=== PATIENT | female | born 1980 | race Caucasian/White ===

== ENCOUNTER → 2016-08-15 | Outpatient (REF) | payer SELFPAY | LOC: M LAB REF 16:51 | PROVIDERS: ATTEND Physician Assistant Medical | DX: S31.819A Unspecified open wound of right buttock, initial encounter (principal); X58.XXXA Exposure to other specified factors, initial encounter; Y92.9 Unspecified place or not applicable; Y93.9 Activity, unspecified; Y99.8 Other external cause status ==

== ENCOUNTER → 2017-08-29 | Outpatient (REF) | payer SELFPAY ==
[2017-08-29 11:12] LABS: HEMATOCRIT 42.1 % (36.0-47.0); HEMOGLOBIN 13.8 g/dl (12.0-15.5); MEAN CORPUSCULAR HEMOGLOBIN 30.2 pg (27.0-33.0); MEAN CORPUSCULAR HGB CONC 32.8 g/dl (32.0-36.5); MEAN CORPUSCULAR VOLUME 92.1 fl (80.0-96.0); PLATELET COUNT, AUTOMATED 268 10^3/uL (150-450); RED BLOOD COUNT 4.57 10^6/uL (4.00-5.40); RED CELL DISTRIBUTION WIDTH 14.1 % (11.5-14.5); WHITE BLOOD COUNT 5.6 10^3/uL (4.0-10.0)
[2017-08-29 11:20] LABS: TOTAL 25(OH) VITAMIN D 64.7 NG/ML (30.0-100.0)
[2017-08-29 11:33] LABS: ALBUMIN/GLOBULIN RATIO 1.21 (1.00-1.93); ALKALINE PHOSPHATASE 61 U/L (45-117); ALT/SGPT 21 U/L (12-78); ANION GAP 6 MEQ/L (8-16); AST/SGOT 15 U/L (7-37); BILIRUBIN,TOTAL 0.4 MG/DL (0.2-1.0); BLOOD UREA NITROGEN 9 MG/DL (7-18); CALCIUM LEVEL 8.7 MG/DL (8.5-10.1); CARBON DIOXIDE LEVEL 27 MEQ/L (21-32); CHLORIDE LEVEL 107 MEQ/L (98-107); CHOLESTEROL LEVEL 151 MG/DL (<200); CHOLESTEROL RISK RATIO 3.511 (<5); CREATININE FOR GFR 0.76 MG/DL (0.55-1.30); GLOMERULAR FILTRATION RATE > 60.0 (>60); GLUCOSE, FASTING 74 MG/DL (70-100); HDL CHOLESTEROL 43 MG/DL (>40); LDL CHOLESTEROL 93.8 MG/DL (<100); NON-HDL-C 108 MG/DL; POTASSIUM SERUM 4.4 MEQ/L (3.5-5.1); SODIUM LEVEL 140 MEQ/L (136-145); TOTAL PROTEIN 7.3 GM/DL (6.4-8.2); TRIGLYCERIDES LEVEL 71 MG/DL (<150)
[2017-08-29 12:34] LABS: ESTIMATED AVERAGE GLUCOSE 97 MG/DL (60-110)
== END ==
LOC: M LABDRAW1 08:03
DX: D64.9 Anemia, unspecified (principal); R53.83 Other fatigue; E03.9 Hypothyroidism, unspecified
CPT/HCPCS: 84443

== ENCOUNTER 2017-11-21 08:33 | Emergency (ER) | payer BC, SELFPAY ==
[2017-11-21] MEDS: ONDANSETRON 4MG/2ML VIAL (J2405) IV (09:45)
[2017-11-21] MEDS: NS 1,000 ML IV (09:45)
[2017-11-21] MEDS: MORPHINE 4 MG/ML 1ML VIAL/SYRINGE (J2270) IV (09:46)
[2017-11-21] MEDS: LISINOPRIL 20 MG TAB PO (09:48)
[2017-11-21] MEDS: CLINDAMYCIN 900 MG in APPROPRIATE DILUENT 1 EA IV (09:50)
[2017-11-21 09:54] LABS: BASO % 0.2 % (0.0-1.0); EOS # 0.1 10^3/uL (0.0-0.50); EOS % 0.6 % (0.0-3.0); HEMATOCRIT 43.3 % (36.0-47.0); IMMATURE GRANULOCYTE % 0.3 % (0-3.0); LYMPH # 1.2 10^3/uL (1.5-4.5); LYMPH % 10.8 % (24.0-44.0); MEAN CORPUSCULAR HEMOGLOBIN 32.1 pg (27.0-33.0); MEAN CORPUSCULAR HGB CONC 34.6 g/dl (32.0-36.5); MEAN CORPUSCULAR VOLUME 92.7 fl (80.0-96.0); MONO # 0.9 10^3/uL (0.0-0.8); MONO % 8.2 % (0.0-5.0); NEUTROPHILS # 9.1 10^3/uL (1.8-7.7); NEUTROPHILS % 79.9 % (36.0-66.0); PLATELET COUNT, AUTOMATED 256 10^3/uL (150-450); RED BLOOD COUNT 4.67 10^6/uL (4.00-5.40); RED CELL DISTRIBUTION WIDTH 12.7 % (11.5-14.5); WHITE BLOOD COUNT 11.3 10^3/uL (4.0-10.0)
[2017-11-21 10:17] LABS: ALBUMIN 4.3 GM/DL (3.2-5.2); ALBUMIN/GLOBULIN RATIO 1.08 (1.00-1.93); ALKALINE PHOSPHATASE 79 U/L (45-117); ALT/SGPT 30 U/L (12-78); ANION GAP 8 MEQ/L (8-16); AST/SGOT 19 U/L (7-37); BLOOD UREA NITROGEN 9 MG/DL (7-18); CALCIUM LEVEL 8.9 MG/DL (8.5-10.1); CARBON DIOXIDE LEVEL 27 MEQ/L (21-32); CHLORIDE LEVEL 103 MEQ/L (98-107); CREATININE FOR GFR 0.83 MG/DL (0.55-1.30); GLOMERULAR FILTRATION RATE > 60.0 (>60); GLUCOSE, FASTING 96 MG/DL (70-100); POTASSIUM SERUM 3.8 MEQ/L (3.5-5.1); SODIUM LEVEL 138 MEQ/L (136-145); TOTAL PROTEIN 8.3 GM/DL (6.4-8.2)
[2017-11-21] MEDS ORDERED: ISOVUE-370 76% 100ML VIAL (Q9967) As Ordered (10:31)
[2017-11-21] MEDS: KETOROLAC 30 MG/ML VIAL (J1885) IV (10:55)
== END 2017-11-21 12:06 | disposition home or self-care (01) ==
LOC: M ED 08:33
DX: R51 Headache (principal); K04.7 Periapical abscess without sinus; K02.9 Dental caries, unspecified; I10 Essential (primary) hypertension; R60.0 Localized edema; F90.9 Attention-deficit hyperactivity disorder, unspecified type; Z79.899 Other long term (current) drug therapy; Z87.891 Personal history of nicotine dependence
CPT/HCPCS: J2270

== ENCOUNTER 2018-07-04 19:58 | Emergency (ER) | payer BC, OTHER ==
[~2018-07-04] VITALS: Ht 154.9 cm; Wt 56.8 kg
[~2018-07-04 19:58] MED LIST: CLIN150C14 PO; DEXT10TA2 PO; LISI-538 PO; NAPR-50 PO
[2018-07-04] MEDS ORDERED: ADVI200C5 PO (20:35)
[2018-07-04] MEDS ORDERED: TYLE500T78 PO (20:35)
[2018-07-04] MEDS ORDERED: ALBUTEROL SULFATE 2.5 MG/0.5 ML INH NEB SOLN NEB ONE (21:15)
[2018-07-04 21:24] LABS: INFLUENZA A AMPLIFICATION POSITIVE (NEGATIVE); INFLUENZA B AMPLIFICATION NEGATIVE (NEGATIVE)
[2018-07-04 21:43] VITALS: BP 140/91
--- NOTE | 2018-07-05 01:50 | REP ---
Clinical: Productive cough and pain . Comparison: None . Technique: PA and lateral. Findings: The mediastinum and cardiac silhouette are normal. The lung jimenez are clear and without acute consolidation, effusion, or pneumothorax. The skeletal structures are intact and normal. Impression: 1. No acute cardiopulmonary process. Electronically Signed by El Dickson MD 07/05/2018 01:42 A
== END 2018-07-04 21:44 | disposition home or self-care (01) ==
LOC: M ED 19:58
DX: J09.X2 Influenza due to identified novel influenza A virus with other respiratory manifestations (principal); I10 Essential (primary) hypertension; F90.9 Attention-deficit hyperactivity disorder, unspecified type; Z79.899 Other long term (current) drug therapy

== ENCOUNTER 2018-08-16 10:18 | Emergency (ER) | payer OTHER ==
[~2018-08-16] VITALS: Ht 154.9 cm; Wt 52.3 kg
[~2018-08-16 10:18] MED LIST changes: +ADVI200C5 PO; -NAPR-50 PO; +NAPR-837 PO; +TYLE500T78 PO
--- NOTE | 2018-08-16 10:49 | REP ---
Left knee five views : There is no fracture or dislocation. Mineralization and joint spaces are normal. There are no calcifications or foreign bodies. Impression: Negative left knee . Electronically Signed by Yung Duggan MD 08/16/2018 10:41 A
[2018-08-16 11:09] LABS: BASO % 0.6 % (0.0-1.0); EOS # 0.2 10^3/uL (0.0-0.50); EOS % 2.7 % (0.0-3.0); HEMATOCRIT 37.5 % (36.0-47.0); HEMOGLOBIN 12.5 g/dl (12.0-15.5); LYMPH % 29.1 % (24.0-44.0); MEAN CORPUSCULAR HEMOGLOBIN 31.8 pg (27.0-33.0); MEAN CORPUSCULAR HGB CONC 33.3 g/dl (32.0-36.5); MEAN CORPUSCULAR VOLUME 95.4 fl (80.0-96.0); MONO # 0.7 10^3/uL (0.0-0.8); MONO % 9.9 % (0.0-5.0); NEUTROPHILS % 57.3 % (36.0-66.0); PLATELET COUNT, AUTOMATED 345 10^3/uL (150-450); RED BLOOD COUNT 3.93 10^6/uL (4.00-5.40)
[2018-08-16] MEDS ORDERED: INDOMETHACIN 25 MG CAP PO ONE (11:15)
[2018-08-16 11:36] LABS: BLOOD UREA NITROGEN 17 MG/DL (7-18); C REACTIVE PROTEIN QUANTITATIV 0.53 MG/DL (0.00-0.30); CALCIUM LEVEL 8.6 MG/DL (8.5-10.1); CARBON DIOXIDE LEVEL 28 MEQ/L (21-32); CHLORIDE LEVEL 107 MEQ/L (98-107); GLOMERULAR FILTRATION RATE > 60.0 (>60); GLUCOSE, FASTING 77 MG/DL (70-100); POTASSIUM SERUM 4.4 MEQ/L (3.5-5.1); RHEUMATOID FACTOR QUANT < 10.0 IU/ML (<15.0); SODIUM LEVEL 140 MEQ/L (136-145); URIC ACID 3.6 MG/DL (2.6-6.0)
[2018-08-16 12:09] VITALS: BP 147/81
[2018-08-16] MEDS ORDERED: INDO50CA11 PO (12:24)
[2018-08-16 12:33] LABS: ERYTHROCYTE SEDIMENTATION RATE 13 mm/hr (0-20)
== END 2018-08-16 12:32 | disposition home or self-care (01) ==
LOC: M ED 10:18
DX: M06.4 Inflammatory polyarthropathy (principal); I10 Essential (primary) hypertension; Z79.899 Other long term (current) drug therapy

== ENCOUNTER 2019-10-10 21:11 | Emergency (ER) | payer OTHER ==
[~2019-10-10] VITALS: Ht 154.9 cm; Wt 50.0 kg
[~2019-10-10 21:11] MED LIST changes: +INDO50CA91 PO
[2019-10-10] MEDS ORDERED: NS 1,000 ML IV ONE (21:45)
[2019-10-10] MEDS ORDERED: ACETAMINOPHEN 325 MG TAB PO ONE (21:45)
[2019-10-10 22:13] LABS: MEAN CORPUSCULAR HEMOGLOBIN 31.7 pg (27.0-33.0); MEAN CORPUSCULAR HGB CONC 34.3 g/dl (32.0-36.5); MEAN CORPUSCULAR VOLUME 92.6 fl (80.0-96.0); PLATELET COUNT, AUTOMATED 174 10^3/uL (150-450); RED BLOOD COUNT 3.78 10^6/uL (4.00-5.40); WHITE BLOOD COUNT 13.6 10^3/uL (4.0-10.0)
[2019-10-10 22:37] LABS: LYMPHOCYTES 3 % (16-44); NEUTROPHILS 91 % (28-66)
[2019-10-10 22:38] LABS: PLATELET ESTIMATE NORMAL (NORMAL)
[2019-10-10 22:39] LABS: TOXIC VACUOLATION 1+
[2019-10-10 22:42] LABS: ALBUMIN 3.9 GM/DL (3.2-5.2); ALT/SGPT 119 U/L (12-78); BLOOD UREA NITROGEN 17 MG/DL (7-18); CALCIUM LEVEL 8.7 MG/DL (8.5-10.1); CARBON DIOXIDE LEVEL 25 MEQ/L (21-32); CHLORIDE LEVEL 106 MEQ/L (98-107); CPK CREATINE PHOSPHOKINASE 131 U/L (26-192); CREATININE FOR GFR 0.94 MG/DL (0.55-1.30); GLOMERULAR FILTRATION RATE > 60.0 (>60); GLUCOSE, FASTING 108 MG/DL (70-100); SODIUM LEVEL 137 MEQ/L (136-145); TOTAL PROTEIN 6.6 GM/DL (6.4-8.2)
[2019-10-10 23:26] LABS: MONO SCRN NEGATIVE (NEGATIVE)
[2019-10-10] MEDS ORDERED: MACR100C43 PO (23:33)
[2019-10-10] MEDS ORDERED: NITROFURANTOIN (MACROBID) 100 MG CAP PO ONE (23:45)
[2019-10-11 00:06] VITALS: BP 122/70
[2019-10-11] MEDS ORDERED: POTA20TA6 PO (00:11)
--- NOTE | 2019-10-11 08:37 | REP ---
REASON: Dyspnea. COMPARISON: 07/04/2018. FINDINGS: The technique utilized in obtaining the radiograph has magnified the cardiac silhouette and accentuated the interstitial markings. The superior mediastinal structures are midline. The cardiac silhouette is unremarkable in size, shape, and position. The diaphragmatic surfaces of the lungs are regular, and the costophrenic angles are clear. The pulmonary jimenez are clear. The imaged osseous structures are intact. IMPRESSION: There is no acute cardiopulmonary disease. Electronically Signed by Serjio Mcbride DO 10/11/2019 09:22 A
== END 2019-10-11 00:08 | disposition home or self-care (01) ==
LOC: M ED 21:11
DX: N39.0 Urinary tract infection, site not specified (principal); E87.6 Hypokalemia; R79.89 Other specified abnormal findings of blood chemistry; I10 Essential (primary) hypertension; F90.9 Attention-deficit hyperactivity disorder, unspecified type; Z79.899 Other long term (current) drug therapy

== ENCOUNTER → 2020-12-11 | Outpatient (CLI) | payer MEDICAID ==
[~2020-12-11] MED LIST changes: -CLIN150C14 PO; +CLIN150C17 PO; -LISI-538 PO; +LISI20TA33 PO; +MACR100C43 PO; +POTA20TA6 PO
== END ==
LOC: M OUTALCOH 09:14
PROVIDERS: ATTEND Psychiatry & Neurology Psychiatry
DX: Z03.89 Encounter for observation for other suspected diseases and conditions ruled out (principal)

== ENCOUNTER 2021-09-13 22:27 | Emergency (ER) | payer MEDICAID ==
[~2021-09-13] VITALS: Ht 154.9 cm; Wt 51.8 kg
[~2021-09-13 22:27] MED LIST changes: +POTA-151 PO; -POTA20TA6 PO
[2021-09-13 22:29] VITALS: BP 171/106
== END 2021-09-14 00:45 | disposition left against medical advice (07) ==
LOC: M ED 22:27
DX: Z53.21 Procedure and treatment not carried out due to patient leaving prior to being seen by health care provider (principal)

== ENCOUNTER 2022-11-02 21:33 | Emergency (ER) | payer MEDICAID ==
[~2022-11-02] VITALS: Ht 154.9 cm; Wt 51.4 kg
[2022-11-02 21:34] VITALS: BP 158/100; TEMP 99.7; O2SAT 95
== END 2022-11-02 23:50 | disposition left against medical advice (07) ==
LOC: M ED 21:33
DX: Z53.21 Procedure and treatment not carried out due to patient leaving prior to being seen by health care provider (principal)

== ENCOUNTER 2022-11-05 02:05 | Emergency (ER) | payer MEDICAID ==
[~2022-11-05] VITALS: Ht 154.9 cm; Wt 52.3 kg
[2022-11-05 02:06] VITALS: BP 134/90; TEMP 97.6; O2SAT 100
== END 2022-11-05 06:40 | disposition left against medical advice (07) ==
LOC: M ED 02:05
DX: Z53.21 Procedure and treatment not carried out due to patient leaving prior to being seen by health care provider (principal)

== ENCOUNTER 2022-12-22 06:54 | Emergency (ER) | payer MEDICAID ==
[~2022-12-22] VITALS: Ht 154.9 cm; Wt 47.5 kg
[2022-12-22 06:58] VITALS: BP 173/108; TEMP 98.2; O2SAT 100
== END 2022-12-22 07:27 | disposition home or self-care (01) ==
LOC: M ED 06:54
DX: T40.411A Poisoning by fentanyl or fentanyl analogs, accidental (unintentional), initial encounter (principal); I10 Essential (primary) hypertension; F90.9 Attention-deficit hyperactivity disorder, unspecified type; Z79.899 Other long term (current) drug therapy

== ENCOUNTER → 2023-12-29 | Outpatient (CLI) | payer OTHER | LOC: M WUC 12:51 | PROVIDERS: ATTEND Nurse Practitioner Family | DX: R05.9 Cough, unspecified (principal); J06.9 Acute upper respiratory infection, unspecified ==

== ENCOUNTER 2024-11-10 20:17 | Emergency (ER) | payer OTHER ==
[~2024-11-10] VITALS: Ht 154.9 cm; Wt 47.4 kg
[2024-11-10 21:44] LABS: BASO # 0.0 10^3/uL (0.0-0.2); BASO % 0.3 % (0.0-1.0); EOS # 0.0 10^3/uL (0.0-0.5); EOS % 0.1 % (0.0-3.0); LYMPH # 1.7 10^3/uL (1.5-5.0); LYMPH % 10.7 % (24.0-44.0); MONO # 1.4 10^3/uL (0.0-0.8); MONO % 8.9 % (2.0-8.0); NEUTROPHILS # 12.4 10^3/uL (1.5-8.5); NEUTROPHILS % 79.6 % (36.0-66.0); PLATELET COUNT, AUTOMATED 281 10^3/uL (150-450)
[2024-11-10] MEDS: NS 500 ML IV ONE (21:44)
[2024-11-10 22:13] LABS: ALT/SGPT 15 U/L (7.0-40); AST/SGOT 31 U/L (<34); CALCIUM LEVEL 8.0 MG/DL (8.5-10.1); CARBON DIOXIDE LEVEL 26 MMOL/L (20-31); CHLORIDE LEVEL 98 MMOL/L (98-107); CREATININE FOR GFR 0.67 MG/DL (0.55-1.30); GLOMERULAR FILTRATION RATE > 90.0 (>58); POTASSIUM SERUM 4.4 MMOL/L (3.5-5.1); SODIUM LEVEL 136 MMOL/L (136-145)
[2024-11-10] MEDS: ALBUTEROL SULFATE 2.5 MG/0.5 ML INH CONCENTRATE NEB SOLN INH ONE (22:17)
[2024-11-10 22:28] LABS: HCG, SERUM QUALITATIVE NEGATIVE (NEGATIVE)
[2024-11-11 01:00] VITALS: BP 145/100; TEMP 98.7
[2024-11-11] MEDS ORDERED: PRED20TA PO (01:03)
[2024-11-11] MEDS ORDERED: VENTAER INH (01:03)
[2024-11-11] MEDS ORDERED: BENZ200C70 PO (01:03)
[2024-11-11 01:15] VITALS: O2SAT 98
== END 2024-11-11 01:31 | disposition home or self-care (01) ==
LOC: M ED 20:17
DX: J12.2 Parainfluenza virus pneumonia (principal); J45.909 Unspecified asthma, uncomplicated; F17.290 Nicotine dependence, other tobacco product, uncomplicated; Z79.51 Long term (current) use of inhaled steroids; Z79.899 Other long term (current) drug therapy; Z79.52 Long term (current) use of systemic steroids
CPT/HCPCS: 71045; 80048; 80076; 84145; 84703; 85025; 87040; 87486; 87581; 87633; 87798; 93005; 94760; 96361; 96374; 99284; J2919